=== PATIENT | male | born 1995 | race Two or more races ===

== ENCOUNTER 2024-03-05 09:10 | Emergency (ER) | payer OTHER ==
[~2024-03-05] VITALS: Ht 172.7 cm; Wt 63.5 kg
[2024-03-05 09:16] VITALS: BP 143/87; TEMP 98
[2024-03-05] MEDS ORDERED: NAPROXEN 250 MG TABLET ONE (09:51)
[2024-03-05] MEDS ORDERED: CYCLOBENZAPRINE 10 MG TABLET ONE (09:51)
[2024-03-05] MEDS: CYCLOBENZAPRINE 10 MG TABLET PO ONE (09:53)
[2024-03-05] MEDS: NAPROXEN 250 MG TABLET PO ONE (09:53)
[2024-03-05] MEDS ORDERED: CYCL10TA9 PO (10:51)
[2024-03-05] MEDS ORDERED: IBUP-1490 PO (10:51)
[2024-03-05 11:49] VITALS: O2SAT 98
== END 2024-03-05 11:50 | disposition home or self-care (01) ==
LOC: ER 09:15
DX: M54.2 Cervicalgia (principal); M25.512 Pain in left shoulder; M25.552 Pain in left hip; Z79.899 Other long term (current) drug therapy; V43.52XA Car driver injured in collision with other type car in traffic accident, initial encounter; Y92.410 Unspecified street and highway as the place of occurrence of the external cause; Y93.89 Activity, other specified; Y99.8 Other external cause status
CPT/HCPCS: 73030-TC